=== PATIENT | male | born 1980 | race African-American/Black ===

== ENCOUNTER 2017-12-07 08:05 | Emergency (ER) | payer SELFPAY ==
[~2017-12-07] VITALS: Ht 188 cm; Wt 75.0 kg
[2017-12-07 10:43] VITALS: BP 148/96
[2017-12-07] MEDS ORDERED: CYCLOBENZAPRINE 10MG TABLET PO ONE (10:45)
[2017-12-07] MEDS ORDERED: KETOROLAC 30MG/ML VIAL IM ONE (10:45)
== END 2017-12-07 12:22 | disposition home or self-care (01) ==
LOC: ER 08:05
DX: S10.83XA Contusion of other specified part of neck, initial encounter (principal); W01.0XXA Fall on same level from slipping, tripping and stumbling without subsequent striking against object, initial encounter; Y93.H9 Activity, other involving exterior property and land maintenance, building and construction; Y92.018 Other place in single-family (private) house as the place of occurrence of the external cause; R03.0 Elevated blood-pressure reading, without diagnosis of hypertension; F17.210 Nicotine dependence, cigarettes, uncomplicated; Z88.0 Allergy status to penicillin
CPT/HCPCS: 70360; 96372; 99283; J1885

== ENCOUNTER 2018-06-02 12:25 | Emergency (ER) | payer SELFPAY ==
[~2018-06-02] VITALS: Ht 188 cm; Wt 78.0 kg
[2018-06-02] MEDS ORDERED: BACITRACIN ZINC OINT UDPKT TOP ONE (14:30)
[2018-06-02] MEDS ORDERED: TRAMADOL 50MG TABLET PO ONE (14:30)
[2018-06-02 14:50] VITALS: BP 122/82
== END 2018-06-02 14:50 | disposition home or self-care (01) ==
LOC: ER 13:36
DX: T23.231A Burn of second degree of multiple right fingers (nail), not including thumb, initial encounter (principal); W39.XXXA Discharge of firework, initial encounter; Y93.89 Activity, other specified; Y92.89 Other specified places as the place of occurrence of the external cause
CPT/HCPCS: 16020; 99284

== ENCOUNTER 2021-05-20 11:45 | Emergency (ER) | payer MEDICAID ==
[~2021-05-20] VITALS: Ht 188 cm; Wt 70.0 kg
[2021-05-20] MEDS ORDERED: TRAM50TA94 MT (13:23)
[2021-05-20 13:29] VITALS: BP 139/95
[2021-05-20] MEDS ORDERED: KETOROLAC 30MG/ML VIAL IM ONE (13:30)
== END 2021-05-20 13:54 | disposition home or self-care (01) ==
LOC: ER 11:45
DX: G89.29 Other chronic pain (principal); M54.6 Pain in thoracic spine; F14.10 Cocaine abuse, uncomplicated; F12.10 Cannabis abuse, uncomplicated; D57.1 Sickle-cell disease without crisis; Z87.81 Personal history of (healed) traumatic fracture; Z87.828 Personal history of other (healed) physical injury and trauma; Z88.0 Allergy status to penicillin
CPT/HCPCS: 96372; 99283; J1885

== ENCOUNTER 2022-10-02 08:47 | Emergency (ER) | payer MEDICAID ==
[~2022-10-02] VITALS: Ht 188 cm; Wt 75.0 kg
[~2022-10-02 08:47] MED LIST: ERYT1OIN6 RIGHTEYE; TRAM50TA94 MT
[2022-10-02 08:56] VITALS: BP 114/77
[2022-10-02] MEDS ORDERED: ACYC200C31 MT (09:19)
[2022-10-02] MEDS ORDERED: HYDR453.4 TP (09:19)
== END 2022-10-02 09:38 | disposition home or self-care (01) ==
LOC: ER 08:47
DX: R21 Rash and other nonspecific skin eruption (principal); F14.10 Cocaine abuse, uncomplicated; F12.10 Cannabis abuse, uncomplicated; D57.1 Sickle-cell disease without crisis; B00.9 Herpesviral infection, unspecified; Z87.891 Personal history of nicotine dependence; Z88.0 Allergy status to penicillin
CPT/HCPCS: 99283